=== PATIENT | male | born 1960 | race Caucasian/White ===

== ENCOUNTER 2017-04-22 07:11 | Day surgery (SDC) | payer OTHER ==
[~2017-04-22 07:11] MED LIST: LIDOCAINE W/ SODIUM BICARB 0.5 ML SYR ONE; Lactated Ringers 1,000 ML PRIMARY IV ONE; MIDAZOLAM 5 MG/1 ML ONE; fentaNYL Inj 100 MCG/2 ML VIAL ONE
[2017-04-22] MEDS ORDERED: KETOROLAC 30 MG/1 ML VIAL ONE (08:32)
--- NOTE | 2017-04-22 08:32 | GEN.OPNOTE ---
Colonoscopy Procedure Note Surgery Date: 04/22/17 Preoperative Diagnosis: Colon cancer screening Postoperative Diagnosis: Colon cancer screening. Sigmoid diverticulosis. Polyp at the cecum Procedure: Colonoscopy with snare polypectomy Surgeon: Denzel Fortune MD Anesthesia Provider: Pritesh Meza CRNA Anesthesia Type: MAC Indications: Colon cancer surveillance Findings: Prep : Excellent Cecum : Scope was advanced slowly to the cecum. Ileocecal valve clearly identified. Patient had 2 sessile polyps seen on a fold just above the ileocecal valve. Measured 110 cm. Both are easily removed with snare polypectomy Ascending : Ascending colon was free from disease Transverse : Transverse colon had no polyps tumors or cancers Sigmoid : Descending colon was within normal limits. Sigmoid colon had diverticulosis Rectum : Rectum free from disease Digital Rectal Exam : ] A lubricated flexible colonoscope was inserted and passed to the blind end of the cecum. Additional Details: Patient colonoscopy in 5 years. She be on a high-fiber diet
[2017-04-22] MEDS ORDERED: KETOROLAC 30 MG/1 ML VIAL IVP ONE (08:44)
[2017-04-22 09:28] VITALS: RESP 14; TEMP 96.8
== END 2017-04-22 09:22 | disposition home or self-care (01) ==
LOC: SDSC 07:11
PROVIDERS: ATTEND Surgery
DX: Z12.11 Encounter for screening for malignant neoplasm of colon (principal); K57.30 Diverticulosis of large intestine without perforation or abscess without bleeding; D12.0 Benign neoplasm of cecum
CPT/HCPCS: 45385; J1885; J2250; J2704; J3010; J7120